=== PATIENT | male | born 1980 | race Caucasian/White ===

== ENCOUNTER → 2017-04-19 | Outpatient (CLI) | payer BC ==
--- NOTE | 2017-04-19 23:50 | EKG REPORT ---
SEVERITY:- NORMAL ECG - SINUS RHYTHM : Confirmed by: Melissa Holland 19-Apr-2017 23:50:10
== END ==
LOC: OD 12:08
PROVIDERS: ATTEND Nurse Practitioner Family
DX: R03.0 Elevated blood-pressure reading, without diagnosis of hypertension (principal)
CPT/HCPCS: 93005; 93010

== ENCOUNTER 2020-06-18 06:42 | Emergency (ER) | payer BC ==
--- NOTE | 2020-06-18 07:09 | EKG REPORT ---
SEVERITY:- OTHERWISE NORMAL ECG - SINUS RHYTHM (CORONARY SINUS RHYTHM) : Confirmed by: Kaushal Guerrero MD 18-Jun-2020 07:08:15
--- NOTE | 2020-06-18 07:37 | RADIOLOGY REPORT (SQ) ---
EXAM DESCRIPTION: XR CHEST 2 VIEWS COMPLETED DATE/TME: 06/18/2020 00:00 CLINICAL HISTORY: PAIN COMPARISON: None. FINDINGS: Frontal and lateral radiographic views of the chest. Cardiomediastinal silhouette: Normal size and contour. Lungs: No consolidation, pneumothorax, or pleural effusion. Bones: Mild degenerative endplate spondylosis of the thoracic spine. Upper abdomen: No abnormality identified. IMPRESSION: 1. No acute pulmonary process identified.
--- NOTE | 2020-06-18 07:45 | ER Document Report ---
ED Medical Screen (RME) - General Chief Complaint: Chest Pain Stated Complaint: CHEST PAIN,FULL BODY NUMBNESS,HEADACHE Time Seen by Provider: 06/18/20 07:43 Primary Care Provider: TIFFANY NASH NP [Primary Care Provider] - Follow up as needed Notes: 40-year-old male with chief complaint of cough for 2 weeks which has been occasional with a congested cough, it states for the past week he has felt intermittent pains across both sides of his chest which occasionally shoots into his arms and occasionally he feels tingling in his arms as well. He denies fever, sore throat, sick symptoms otherwise. He denies any obvious exposure and he had a negative COVID-19 test 2 weeks ago reportedly. He denies smoking, reports only medical history is hypertension which he is treated for. TRAVEL OUTSIDE OF THE [place] IN LAST 30 DAYS: No - Related Data Allergies/Adverse Reactions: No Known Allergies Allergy (Unverified 06/18/20 07:03) Home Medications: HTN Past Medical History - Social History Frequency of alcohol use: None Drug Abuse: None Physical Exam - Vital signs Vitals: Temp Pulse Resp BP Pulse Ox 97.7 F 69 17 118/75 99 06/18/20 06:50 06/18/20 06:50 06/18/20 06:50 06/18/20 06:50 06/18/20 06:50 - Respiratory Respiratory status: No respiratory distress. No: Respiratory distress Breath sounds: Other - Occasional congested cough. No: Decreased air movement Course - Re-evaluation Re-evalutation: I have greeted and performed a rapid initial assessment of this patient. A comprehensive ED assessment and evaluation of the patient, analysis of test results and completion of the medical decision making process will be conducted by additional ED providers. - Vital Signs Vital signs: Temp Pulse Resp BP Pulse Ox 97.7 F 69 17 118/75 99 06/18/20 06:50 06/18/20 06:50 06/18/20 06:50 06/18/20 06:50 06/18/20 06:50 Doctor's Discharge - Discharge Referrals: TIFFANY NASH NP [Primary Care Provider] - Follow up as needed
[2020-06-18] MEDS ORDERED: NORMAL SALINE 1000 ML 1,000 ML IV ONE (07:58)
[2020-06-18 08:09] LABS: ABSOLUTE EOSINOPHILS # (AUTO) 0.1 10^3/uL (0.0-0.6); ABSOLUTE LYMPHOCYTES (AUTO) 2.1 10^3/uL (0.5-4.7); ABSOLUTE MONOCYTES (AUTO) 0.6 10^3/uL (0.1-1.4); ABSOLUTE NEUT (AUTO) 6.6 10^3/uL (1.7-8.2); BASOPHILS % (AUTO) 0.4 % (0-2); EOSINOPHILS % (AUTO) 1.3 % (0-6); HEMATOCRIT 45.4 % (37.9-51.0); HEMOGLOBIN 16.2 g/dL (13.5-17.0); LYMPHOCYTES % (AUTO) 22.3 % (13-45); MEAN CORPUSCULAR HEMOGLOBIN 31.2 pg (27.0-33.4); MEAN CORPUSCULAR HGB CONC 35.8 g/dL (32.0-36.0); MEAN CORPUSCULAR VOLUME 87 fl (80-97); MONOCYTES % (AUTO) 6.2 % (3-13); PLATELET COUNT 275 10^3/uL (150-450); RED BLOOD COUNT 5.21 10^6/uL (4.35-5.55); RED CELL DISTRIBUTION WIDTH 13.1 % (11.5-14.0); SEGMENTED NEUTROPHILS % (AUTO) 69.8 % (42-78); TOTAL CELLS COUNTED % (AUTO) 100 %; WHITE BLOOD COUNT 9.5 10^3/uL (4.0-10.5)
[2020-06-18 08:25] LABS: ALBUMIN 4.5 g/dL (3.5-5.0); ALKALINE PHOSPHATASE 71 U/L (38-126); ANION GAP 9 (5-19); ASPARTATE AMINO TRANSFERASE 44 U/L (17-59); BILIRUBIN,DIRECT 0.2 mg/dL (0.0-0.4); BILIRUBIN,TOTAL 0.8 mg/dL (0.2-1.3); BLOOD UREA NITROGEN 18 mg/dL (7-20); CALCIUM 9.6 mg/dL (8.4-10.2); CARBON DIOXIDE 31 mmol/L (22-30); CHLORIDE 101 mmol/L (98-107); GLUCOSE 128 mg/dL (75-110); POTASSIUM 3.6 mmol/L (3.6-5.0)
[2020-06-18 09:42] VITALS: BP 116/86
--- NOTE | 2020-06-18 10:06 | RADIOLOGY REPORT (SQ) ---
"EXAM DESCRIPTION: CT HEAD WITHOUT IMAGES COMPLETED DATE/TIME: 06/18/2020 9:51 am REASON FOR STUDY: facial numbness COMPARISON: None. TECHNIQUE: Axial images acquired through the brain without intravenous contrast. Images reviewed wi th bone, brain and subdural windows. Additional sagittal and coronal reconstructions were generated. Images stored on PACS. All CT scanners at this facility use dose modulation, iterative reconstruction, and/or weight based d osing when appropriate to reduce radiation dose to as low as reasonably achievable (ALARA). [facility]: Dose Right [facility]: CareDose [facility]: Dose Right [facility]: Teradose 4D [facility]: Smart Eland RADIATION DOSE: CT Rad equipment meets quality standard of care and radiation dose reduction techniq ues were employed. CTDIvol: 53.2 mGy. DLP: 1017 mGy-cm. mGy. LIMITATIONS: None. FINDINGS: VENTRICLES: Normal size and contour. CEREBRUM: No masses. No hemorrhage. No midline shift. No evidence for acute infarction. Normal gra y/white matter differentiation. No areas of low density in the white matter. CEREBELLUM: No masses. No hemorrhage. No alteration of density. No evidence for acute infarction. EXTRAAXIAL SPACES: No fluid collections. No masses. ORBITS AND GLOBE: No intra- or extraconal masses. Normal contour of globe without masses. CALVARIUM: No fracture. PARANASAL SINUSES: No fluid or mucosal thickening. SOFT TISSUES: No mass or hematoma. OTHER: No other significant finding. IMPRESSION: NORMAL BRAIN CT WITHOUT CONTRAST. EVIDENCE OF ACUTE STROKE: NO. COMMENT: Quality ID # [id number]: Final reports with documentation of one or more dose reduction techniques (e.g., Automated exposure control, adjustment of the mA and/or kV according to patient size, use of iterative reconstruction technique) TECHNICAL DOCUMENTATION: JOB ID: [id number] 2010 [employer] | [employer]- All Rights Reserved Reading location - IP/workstation name: [email or web address]"
--- NOTE | 2020-06-18 10:42 | ER Document Report ---
ED Cardiac - General Chief Complaint: Chest Pain Stated Complaint: CHEST PAIN,FULL BODY NUMBNESS,HEADACHE Time Seen by Provider: 06/18/20 07:43 Primary Care Provider: TIFFANY NASH NP [NURSE PRACTITIONER] - Follow up as needed Mode of Arrival: Ambulatory Information source: Patient TRAVEL OUTSIDE OF THE [place] IN LAST 30 DAYS: No - HPI Notes: Patient presents complaint of 1 week of headaches. He also has bilateral chest pain. This chest pain is sharp and lasts only a few seconds. He states it is a "pinching" sensation. Nothing makes it better or worse. No radiation of his pain. He also has some numbness of both arms that appears transient. He is also had some numbness of his face that he states switch sides when he rolls over in bed. No vomiting or diarrhea. No cough cold or congestion. - Related Data Allergies/Adverse Reactions: No Known Allergies Allergy (Unverified 06/18/20 07:03) Home Medications: HTN Past Medical History - General Information source: Patient - Social History Smoking Status: Never Smoker Frequency of alcohol use: None Drug Abuse: None Family History: Reviewed & Not Pertinent Patient has homicidal ideation: No Renal/ Medical History: Reports: Hx Kidney Stones Past Surgical History: Reports: Hx Tonsillectomy Review of Systems - Review of Systems Constitutional: denies: Chills, Fever Cardiovascular: denies: Chest pain, Palpitations Respiratory: denies: Cough, Short of breath -: Yes All other systems reviewed and negative Physical Exam - Vital signs Vitals: Temp Pulse Resp BP Pulse Ox 97.7 F 69 17 118/75 99 06/18/20 06:50 06/18/20 06:50 06/18/20 06:50 06/18/20 06:50 06/18/20 06:50 Interpretation: Normal - General General appearance: Appears well, Alert - HEENT Head: Normocephalic, Atraumatic Eyes: Normal Pupils: PERRL - Respiratory Respiratory status: No respiratory distress Chest status: Nontender Breath sounds: Normal Chest palpation: Normal - Cardiovascular Rhythm: Regular Heart sounds: Normal auscultation Murmur: No - Abdominal Inspection: Normal Distension: No distension Bowel sounds: Normal Tenderness: Nontender Organomegaly: No organomegaly - Back Back: Normal, Nontender - Extremities General upper extremity: Normal inspection, Nontender, Normal color, Normal ROM, Normal temperature General lower extremity: Normal inspection, Nontender, Normal color, Normal ROM, Normal temperature, Normal weight bearing. No: Tamiko's sign - Neurological Neuro grossly intact: Yes Cognition: Normal Orientation: AAOx4 [place] Coma Scale Eye Opening: Spontaneous [place] Coma Scale Verbal: Oriented [place] Coma Scale Motor: Obeys Commands [place] Coma Scale Total: 15 Speech: Normal Motor strength normal: LUE, RUE, LLE, RLE Sensory: Normal - Psychological Associated symptoms: Normal affect, Normal mood - Skin Skin Temperature: Warm Skin Moisture: Dry Skin Color: Normal Course - Vital Signs Vital signs: Temp Pulse Resp BP Pulse Ox 97.7 F 69 16 116/86 H 100 06/18/20 06:50 06/18/20 06:50 06/18/20 09:01 06/18/20 09:01 06/18/20 09:01 - Laboratory Result Diagrams: 06/18/20 07:50 06/18/20 07:50 Laboratory results interpreted by me: 06/18/20 07:50 Carbon Dioxide 31 H Glucose 128 H ALT 63 H - Diagnostic Test Radiology reviewed: Image reviewed, Reports reviewed - EKG Interpretation by Me EKG shows normal: Sinus rhythm Rate: Normal - 71 Rhythm: NSR Gardner/QRS: No: Right axis deviation, Left axis deviation Discharge - Discharge Clinical Impression: Paresthesia and pain of both upper extremities, Facial numbness Chest pain Qualifiers: Chest pain type: unspecified Qualified Code(s): R07.9 - Chest pain, unspecified Headache Qualifiers: Headache type: unspecified Headache chronicity pattern: acute headache Intractability: not intractable Qualified Code(s): R51.9 - Headache, unspecified Condition: Stable Disposition: HOME, SELF-CARE Instructions: Chest Pain of Unclear Cause ([facility]), Headache ([facility]) Additional Instructions: Dr. Harrison will contact you today or tomorrow to schedule follow-up Forms: Return to Work Referrals: REKHA HARRISON MD [ACTIVE STAFF] - Follow up tomorrow
== END 2020-06-18 10:57 | disposition home or self-care (01) ==
LOC: ER 06:42
DX: R51.9 Headache, unspecified (principal); R07.9 Chest pain, unspecified; R20.0 Anesthesia of skin; Z79.899 Other long term (current) drug therapy
CPT/HCPCS: 93005; 99285; 96360; 36415; 85025; 80053; 84484; 71046; 70450; 93010; J7030